=== PATIENT | male | born 1985 | race African-American/Black ===

== ENCOUNTER 2020-04-03 15:11 | Emergency (ER) | payer OTHER ==
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
[2020-04-03] MEDS ORDERED: ACETAMINOPHEN 325 MG TABLET (FP) PO ONE (15:24)
[2020-04-03] MEDS ORDERED: LIDOCAINE 5% TOPICAL PATCH TP ONE (15:26)
[2020-04-03] MEDS ORDERED: CYCLOBENZAPRINE HCL 10 MG TABLET (FP) PO ONE (15:26)
[2020-04-03 15:51] VITALS: BP 107/63; PULSE 65; TEMP 98.1; BMI 27.1
[2020-04-03] MEDS ORDERED: LIDOCAINE 5% TOPICAL PATCH ONE (16:11)
[2020-04-03] MEDS ORDERED: CYCLOBENZAPRINE HCL 10 MG TABLET (FP) ONE (16:11)
[2020-04-03] MEDS ORDERED: LIDOCAINE PATCH REMOVAL MC SCH (22:00)
== END 2020-04-03 18:03 | disposition home or self-care (01) ==
LOC: FER 15:11
DX: M79.671 Pain in right foot (principal); S00.83XA Contusion of other part of head, initial encounter; M54.5 Low back pain; S46.819A Strain of other muscles, fascia and tendons at shoulder and upper arm level, unspecified arm, initial encounter
CPT/HCPCS: 70450-TC; 72131-TC; 73610-TC-RT-FY; 73630-TC-RT-FY; 99285-25